=== PATIENT | female | born 1945 | race Two or more races ===

== ENCOUNTER 2022-08-18 10:44 | Outpatient (CLI) | payer OTHER | END 2022-08-18 10:46 | disposition home or self-care (01) | LOC: NUCLEAR 10:44 | PROVIDERS: ATTEND Specialist | DX: I87.2 Venous insufficiency (chronic) (peripheral) (principal) ==

== ENCOUNTER 2022-08-20 09:02 | Outpatient (CLI) | payer OTHER | END 2022-08-20 09:03 | disposition home or self-care (01) | LOC: NUCLEAR 09:02 | PROVIDERS: ATTEND Specialist | DX: I73.9 Peripheral vascular disease, unspecified (principal) ==